=== PATIENT | female | born 1995 | race Caucasian/White ===

== ENCOUNTER 2021-05-14 19:35 | Observation (INO) | payer OTHER ==
[~2021-05-14] VITALS: Ht 167.6 cm; Wt 48.5 kg
[2021-05-14 20:31] VITALS: BP 113/58
== END 2021-05-14 21:30 ==
LOC: 4S 19:40
PROVIDERS: ADMIT Obstetrics & Gynecology Obstetrics; ATTEND Obstetrics & Gynecology Obstetrics
DX: O34.62 Maternal care for abnormality of vagina, second trimester (principal); Z3A.20 20 weeks gestation of pregnancy
CPT/HCPCS: 59025; 76805; 81003; 99219